=== PATIENT | male | born 1990 | race Two or more races ===

== ENCOUNTER 2025-02-20 08:09 | Emergency (ER) | payer OTHER, SELFPAY ==
--- NOTE | ~2025-02-20 | XR_ITS ---
EXAMINATION: XR CHEST CLINICAL INFORMATION: cough COMPARISON: None available. TECHNIQUE: 2 views of the chest were obtained. FINDINGS: The cardiac, hilar, and mediastinal contours are normal. Lungs demonstrate a subtle opacity in the right middle lobe distribution. Lungs otherwise clear. There is no pneumothorax or pleural effusion. There is no focal osseous or soft tissue abnormality. XR/XR chest 2V IMPRESSION: Subtle opacity right middle lobe concerning for early pneumonia in the appropriate clinical setting. Electronically signed by: Los Reeder MD 02/20/2025 09:09 AM EDT
[2025-02-20 08:15] VITALS: BP 114/57; PULSE 80; RESP 18; TEMP 37.2; O2SAT 97; BMI 29.9
[2025-02-20 08:43] VITALS: BP 127/83; PULSE 77; RESP 12; TEMP 36.7; O2SAT 95
--- NOTE | 2025-02-20 08:44 | PC.NURSE ---
Pt comes from home for increased sob x 1 day. Hx of Asthma- per pt he has been out of his inhaler for seasonal allergies x1 month. Pt checked O2 at home this morning and was found to be 92% on RA. Has been using nebulizer treatments at home with no relief. 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 Call garcia within reach, all needs met at this time.
[2025-02-20] MEDS: Albuterol/Iprat 2.5/0.5MG 3 ML AMPUL.NEB INHALE (09:17)
[2025-02-20 09:19] VITALS: PULSE 76; RESP 16; O2SAT 96
[2025-02-20 10:42] LABS: Influenza A PCR NEGATIVE (Negative); Influenza B PCR NEGATIVE (Negative); Resp Syncy Virus RNA Qual PCR NEGATIVE (Negative); SARS COV2 PCR INHOUSE NEGATIVE (Negative)
--- NOTE | 2025-02-20 11:08 | PC.NURSE ---
Report received from previous RN (Bárbara). Awaiting Budesonide from pharmacy, per Bárbara RN. To be administered upon receipt.
[2025-02-20 11:16] VITALS: BP 125/74; PULSE 71; RESP 16; O2SAT 98
--- NOTE | 2025-02-20 11:19 | ED_ITS ---
HPI - Asthma General Chief Complaint: Asthma Stated Complaint: Asthma Time Seen by Provider: 02/20/25 08:51 Source: patient and family () Mode of arrival: ambulatory Limitations: no limitations History of Present Illness ED Provider: MIGUEL FERNANDEZ PA-C HPI Narrative: 34 year old male with pmhx significant for asthma presents to the ED today for evaluation of increasing shortness of breath x1 month. He states that he has run out of his symbicort. He has a dog a home that he is allergic too and believes this is exacerbating his asthma. He is using his rescue inhaler more often. Also endorses dry cough and nasal congestion. 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 Denies fever, chills, sore throat, chest pain, wheezing, LE pain or swelling. Denies recent travel or long car rides. Related Data Previous Rx's ?Medication ?Instructions ?Recorded azithromycin 250 mg tablet See Rx Instructions PO .COMPLEX #6 02/20/25 tabs budesonide-formoterol HFA 160 2 inh inhalation BID #10.2 grams 02/20/25 mcg-4.5 mcg/actuation aerosol inhaler (Symbicort) Allergies Allergy/AdvReac Type Severity Reaction Status Date / Time cat dander [CAT] Allergy Intermediate NASAL Verified 02/20/25 08:16 CONGESTION dog dander [DOG] Allergy Intermediate NASAL Verified 02/20/25 08:16 CONGESTION Review of Systems Review of Systems: Yes all other systems are reviewed and are negative [facility] Past Medical History Attestation statement: The following information was validated with the patient. Source: old records reviewed and nursing notes reviewed Social History Social History Smoked in Last 30 Days: No Use of substances other than those prescribed or required for medical reasons: No Advance Directives: No Advance Directives Information Provided: Yes Physical Exam Vital Signs: Vital Signs: Last Vital Signs Temp 97.6 F 02/20/25 11:40 Pulse 72 02/20/25 11:40 Resp 16 02/20/25 11:40 BP 127/84 02/20/25 11:40 Pulse Ox 97 02/20/25 11:40 O2 Del Method Room Air 02/20/25 11:40 BMI result Body Mass Index 29.9 Vital signs stable, afebrile. Not hypoxic. General: Well appearing, in no acute distress. Skin: Warm, dry, intact. No rashes or lesions. Head: Normocephalic, atraumatic. EENT: Hearing is intact b/l. Conjunctiva clear. PERRLA. EOM intact. Moist mucous membranes.? Neck: Supple without LAD Cardiac: Chest wall symmetric. RRR. No JVD. Lungs: Normal respiratory effort without accessory muscle use. No tripoding. CTA bilaterally. no adventitious breath sounds. Abdomen: Soft, non-tender, non-distended. No rebound tenderness or guarding. Positive BS x4. Ext: Upper and lower extremities atraumatic, without tenderness, deformity, swelling or erythema. No peripheral edema. No calf tenderness. Neuro: AOx3. Normal speech. Ambulating with steady gait. Psych: Appropriate mood and affect. Responds appropriately to questions. Course Course Course Narrative: Negative COVID, flu, RSV. Chest x-ray shows findings concerning for pneumonia with opacity to right middle lobe. > will discharge patient home with azithromycin for treatment. States he is out of his Symbicort. Refill sent. He has a follow up appointment with his pulmonol ogist tomorrow. Patient has remained stable throughout ED visit today. Discussed worrisome signs and symptoms and when to return to the ED. All questions answered at this time. Patient is agreeable with disposition and stable for discharge. Medications Administered Discontinued Medications Generic Name Dose Route Start Last Admin Trade Name Freq PRN Reason Stop Dose Admin Albuterol/Ipratropium 3 ml 02/20/25 09:06 02/20/25 09:17 Albuterol/Iprat 2.5/0.5mg 3 Ml Ampul.Neb INHALE 02/20/25 09:07 3 ml ONCE ONE Administration Budesonide 2 puff 02/20/25 09:11 02/20/25 11:24 Budesonide 180 Mcg Aer.Pow.Ba INHALE 02/20/25 09:12 2 puff ONCE ONE Administration Medical Decision Making Medical Decision Making [facility] Narrative: 34 year old male with pmhx significant for asthma presents to the ED today for evaluation of increasing shortness of breath x1 month. Vital signs stable. Not hypoxic. Afebrile. There is no respiratory distress. No tripoding. Dry cough noted. Lungs are clear without adventitious breath sounds. No wheezes. No JVD or peripheral edema. No calf tenderness bilaterally. Noted nasal congestion. Differential diagnosis includes viral syndrome, bronchitis, pneumonia, asthma, a sthma exacerbation Presentation not consistent with GERD, medication side effect, CHF, lung cancer or mass, PE, pleural effusion, ACS. Plan: viral testing, CXR, ED bronch protocol Differential Diagnosis Differential Diagnoses: The differential diagnosis associated with the presentation includes as above. Admission/Observation not indicated. Lab Data MDM Lab Attestation statement: I reviewed the patient's lab results. as above. Labs: Lab Results 02/20/25 Range/Units 09:10 Influenza Type A (PCR) NEGATIVE (Negative) Influenza Type B (PCR) NEGATIVE (Negative) RSV RNA Qual (PCR) NEGATIVE (Negative) SARS-CoV-2 RNA (RT-PCR) NEGATIVE (Negative) Independent Interpretation I performed an independent interpretation of an: Plain X-Ray Interpretation: cxr wtih opacity to right middle lobe Radiology Impression Discussion of test interpretation with radiology: I have reviewed the radiologist's reading. Radiologist Impression: Date of Service: 02/20/25 Procedure(s): XR chest 2V Accession Number(s): [id number] cc: Kanika Bowman DO; Blanco Jose MD~ EXAMINATION: XR CHEST CLINICAL INFORMATION: cough COMPARISON: None available. TECHNIQUE: 2 views of the chest were obtained. FINDINGS: The cardiac, hilar, and mediastinal contours are normal. Lungs demonstrate a subtle opacity in the right middle lobe distribution. Lungs otherwise clear. There is no pneumothorax or pleural effusion. There is no focal osseous or soft tissue abnormality. XR/XR chest 2V IMPRESSION: Subtle opacity right middle lobe concerning for early pneumonia in the appropriate clinical setting. Electronically signed by: Los Reeder MD 02/20/2025 09:09 AM EDT Independent Historian Clinical information obtained from an independent historian. History obtained from or confirmed by: Spouse () External Record Review External record reviewed: Inpatient record Prescription Management I considered prescription management with: Antibiotic (azithromycin) Chronic Conditions Patient?s care impacted by: Other (asthma) Social Determinants Patient?s care significantly limited by Social Determinants of Health including: Other Social Determinant of Health Critical Care Time Critical Care Time Critical Care Time: No Discharge Plan Discharge Clinical Impression: CAP (community acquired pneumonia) Patient Disposition: Home, Self-Care Instructions: Community Acquired Pneumonia (ED) Additional Instructions: You tested negative for covid, flu and rsv. Your chest xray findings are concerning for a developing pneumonia. Treatment for this is with antibiotics. Azithromycin has been sent to your pharmacy for treatment. A refill of your symbicort has been sent to the pharmacy. Follow up with your primary care doctor. Return with new or worsening symptoms. In the case of an emergency call 911. Prescriptions: New azithromycin 250 mg tablet See Rx Instructions PO .COMPLEX Qty: 6 0RF Rx Instructions: For 250 mg dose pack: take 500 mg today (day 1), then 250 mg for 4 days (days 2-5) budesonide-formoterol [Symbicort] 160-4.5 mcg/actuation HFA aerosol inhaler 2 inh inhalation BID Qty: 10.2 0RF Referrals: Blanco Jose MD [Primary Care Provider] - Stand Alone Forms: Work/School Release Interventions: ED Discharge Assessment Last Done: 02/20/25 11:40 Discharge Date/Time: 02/20/25 11:40 Print Language: Bulgarian
[2025-02-20] MEDS: Budesonide 180 MCG AER.POW.BA 2 PUFF INHALE (11:24)
[2025-02-20 11:25] VITALS: PULSE 72; RESP 16; O2SAT 97
--- NOTE | 2025-02-20 11:25 | PC.NURSE ---
Respiratory Therapist at bedside administering Pulmicort. Plan for D/C.
[2025-02-20 11:40] VITALS: BP 127/84; PULSE 72; RESP 16; TEMP 36.4; O2SAT 97
== END 2025-02-20 11:40 | disposition home or self-care (01) ==
PROVIDERS: Emergency Provider Emergency Medicine; PCP Internal Medicine
DX: J18.9 Pneumonia, unspecified organism (principal); R05.9 Cough, unspecified; R09.81 Nasal congestion; Z03.818 Encounter for observation for suspected exposure to other biological agents ruled out
CPT/HCPCS: 0241U; 71046; 94640; 99285

== ENCOUNTER → 2025-02-20 08:40 | Outpatient (BNV) | payer OTHER, SELFPAY | PROVIDERS: Emergency Provider Emergency Medicine; PCP Internal Medicine; Visit Provider Radiology Diagnostic Radiology | DX: R05.9 Cough, unspecified (principal) | CPT/HCPCS: 71046 ==